=== PATIENT | male | born 1955 | race African-American/Black ===

== ENCOUNTER → 2017-03-15 | Day surgery (SDC) | payer OTHER ==
[~2017-03-15] MED LIST: LACTATED RINGER'S 1000 ML INJ 1,000 ML ONE; MORPHINE SULFATE 4 MG/ML INJ ONE; PROPOFOL 200 MG/20 ML AMP IV ONE; Z.0.NO CURRENT MEDS
--- NOTE | 2017-03-17 18:17 | MP ---
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 PROCEDURE Left knee manipulation under anesthesia and confirmatory x-ray ANESTHESIA TIVA SURGEON Jayesh Goldstein MD ESTIMATED BLOOD LOSS none. COMPLICATIONS None known. INDICATION Chuckie Taylor is a 62-year-old male who underwent total knee arthroplasty in September of 2016. He has diligently worked but has had loss of motion to the knee and he is now offered manipulation under anesthesia. Risks, benefits thoroughly discussed including the risk of fracture. Detailed informed consent was obtained. PROCEDURE IN DETAIL The patient is brought to the operating room. He was placed under a deep TIVA. We then proceeded with exam under anesthesia which showed a 10 degree flexion contracture and flexion of the knee to 75 degrees. Stable varus-valgus. We proceeded to gently place into flexion and crepitation was noted within the knee and then we went into the extended position and then back into the flexed position and we repeated this process achieving the maximum range of motion from performing it this way. Now with gravity flexion he had 115 degrees and we were able to further push him to 135, but he was somewhat bouncy at that location. The resting flexion was 115 and his resting extension with 0 degrees. Varus-valgus stress is unchanged. The extensor mechanism appeared to be intact. X-RAYS Left knee AP and lateral with fluoroscopy showed no evidence of fracture and good alignment of total knee arthroplasty. No complications were identified. The patient was awaken and returned to the recovery room in stable condition. MD BRAULIO Campos/ /8:12 AM /6:08 PM
== END | disposition home or self-care (01) ==
LOC: ESDC 06:31
PROVIDERS: ATTEND Orthopaedic Surgery Sports Medicine
DX: M24.662 Ankylosis, left knee (principal); Z96.652 Presence of left artificial knee joint
CPT/HCPCS: 01380; 27570; 73560; 76000; J2270; J3010; J7120